=== PATIENT | male | born 1980 | race Caucasian/White ===

== ENCOUNTER 2018-03-13 15:50 | Emergency (ER) | payer OTHER ==
[~2018-03-13] VITALS: Ht 190.5 cm; Wt 102.1 kg
[2018-03-13 16:00] VITALS: BP 129/94
[2018-03-13] MEDS ORDERED: PENICILLIN V P500 MG PO (16:00)
== END 2018-03-13 17:29 | disposition home or self-care (01) ==
LOC: ER 15:50
DX: K08.89 Other specified disorders of teeth and supporting structures (principal); R51 Headache